=== PATIENT | female | born 1970 | race American Indian/Alaskan Native ===

== ENCOUNTER 2020-01-27 11:13 | Emergency (ER) | payer MEDICAID ==
--- NOTE | 2020-01-27 12:04 | XRay Report ---
CHEST 2 VIEWS INDICATION / CLINICAL INFORMATION: Chest Pain. COMPARISON: None available. FINDINGS: SUPPORT DEVICES: None. HEART / MEDIASTINUM: No significant abnormality. LUNGS / PLEURA: There is a focal region of airspace opacification within the right lower lung. No pne umothorax. ADDITIONAL FINDINGS: No significant additional findings. IMPRESSION: Airspace opacification within the right lower lung could reflect atelectasis or pneumonia. Clinical c orrelation is recommended. Signer Name: Amish Bose MD Signed: 01/27/2020 11:59 AM Workstation Name: [id number]
[2020-01-27 12:19] LABS: Basophils # (Auto) 0.1 K/mm3 (0.0-0.1); Basophils % (Auto) 0.8 % (0.0-1.8); Eosinophils # (Auto) 0.1 K/mm3 (0.0-0.4); Eosinophils % (Auto) 0.6 % (0.0-4.3); Hematocrit 40.1 % (30.3-42.9); Hemoglobin 13.7 gm/dl (10.1-14.3); Mean Corpuscular HGB Conc 34 % (30-34); Mean Corpuscular Volume 88 fl (79-97); Monocytes # (Auto) 0.7 K/mm3 (0.0-0.8); Monocytes % (Auto) 5.9 % (0.0-7.3); Platelet Count 264 K/mm3 (140-440); Red Blood Count 4.54 M/mm3 (3.65-5.03); Red Cell Distribution Width 15.7 % (13.2-15.2)
[2020-01-27 12:41] LABS: Alanine Aminotransferase 7 units/L (7-56); Albumin 4.2 g/dL (3.9-5); BUN/Creatinine Ratio 13; Blood Urea Nitrogen 13 mg/dL (7-17); Calcium 9.3 mg/dL (8.4-10.2); Hemolysis Index 8
[2020-01-27] MEDS ORDERED: cefTRIAXone/NS 1 GM/50 ML 1 GM/50 ML BAG IV ONE (12:55)
--- NOTE | 2020-01-27 12:57 | Emergency Department Report ---
ED Chest Pain HPI - General Chief Complaint: Chest Pain Stated Complaint: CHEST PAIN Time Seen by Provider: 01/27/20 12:29 Source: patient, EMS Mode of arrival: Stretcher Limitations: No Limitations - History of Present Illness Initial Comments: 49-year-old -[place] female patient with history of schizophrenia presents with complaints of right-sided chest pain x today. She denies any personal or family history of heart disease. She describes her pain as sharp and rates her current pain as 8/10 in severity and states it worsens with deep inhalation. She admits to a cough and mild shortness of breath. Patient is currently a smoker and states history of asthma. She denies any hemoptysis, leg pain/swelling, recent long travel/surgeries, history of cancer, history of DVT/PE, or hormone use. She also denies any known recent sick contacts. Pain Location: right chest Pain Radiation: other (Right back) - Related Data Previous Rx's Medication Instructions Recorded Last Taken Type Amoxicillin/Potassium Clav 1 each PO BID 10 Days #20 tablet 01/27/20 Unknown Rx [Augmentin 875-125 Tablet] Azithromycin [Zithromax Z-CHLOE] 0 mg PO DAILY 5 Days #6 tab 01/27/20 Unknown Rx Allergies Allergy/AdvReac Type Severity Reaction Status Date / Time No Known Allergies Allergy Unverified 01/27/20 11:19 Heart Score - HEART Score History: Slightly suspicious EKG: Normal Age: < 45 Risk factors: 1-2 risk factors Troponin: < normal limit HEART Score: 1 - Critical Actions Critical Actions: 0-3 pts:0.9-1.7%risk of adverse cardiac event.Candidate for discharge ED Review of Systems ROS: Stated complaint: CHEST PAIN Other details as noted in HPI Constitutional: denies: chills, diaphoresis, fever, malaise, weakness ENT: denies: throat pain Respiratory: cough, shortness of breath Cardiovascular: chest pain. denies: edema, syncope Gastrointestinal: denies: abdominal pain, nausea, vomiting, diarrhea Musculoskeletal: denies: back pain Skin: denies: rash, lesions Neurological: denies: headache Hematological/Lymphatic: denies: swollen glands ED Past Medical Hx - Past Medical History Previous Medical History?: No - Surgical History Past Surgical History?: No - Social History Smoking Status: Current Every Day Smoker - Medications Home Medications: Home Medications Medication Instructions Recorded Confirmed Last Taken Type Amoxicillin/Potassium Clav 1 each PO BID 10 Days #20 tablet 01/27/20 Unknown Rx [Augmentin 875-125 Tablet] Azithromycin [Zithromax Z-CHLOE] 0 mg PO DAILY 5 Days #6 tab 01/27/20 Unknown Rx ED Physical Exam - General Limitations: No Limitations General appearance: alert, in no apparent distress - Head Head exam: Present: atraumatic, normocephalic - Eye Eye exam: Present: normal appearance. Absent: scleral icterus - Neck Neck exam: Present: normal inspection - Respiratory Respiratory exam: Present: decreased breath sounds (Right mid/lower lung). Absent: respiratory distress, wheezes, rales - Cardiovascular Cardiovascular Exam: Present: regular rate, normal rhythm. Absent: systolic mur mur, diastolic murmur, rubs, gallop - GI/Abdominal GI/Abdominal exam: Present: soft. Absent: distended, tenderness, guarding, rebound, rigid - Extremities Exam Extremities exam: Present: normal inspection. Absent: calf tenderness (No swelling or tenderness noted bilaterally to legs) - Back Exam Back exam: Present: normal inspection. Absent: CVA tenderness (R), CVA tenderness (L) - Neurological Exam Neurological exam: Present: alert, oriented X3 - Psychiatric Psychiatric exam: Present: normal affect, normal mood - Skin Skin exam: Present: warm, dry, intact, normal color. Absent: rash ED Course Vital Signs 01/27/20 01/27/20 11:19 12:59 Temperature 98.1 F 98.9 F Pulse Rate 89 78 Respiratory 16 16 Rate Blood Pressure 125/80 Blood Pressure 122/83 [Left] O2 Sat by Pulse 96 99 Oximetry ED Medical Decision Making - Lab Data Result diagrams: 01/27/20 11:55 01/27/20 11:55 Lab Results 01/27/20 01/27/20 Range/Units 11:55 11:55 WBC 11.5 H (4.5-11.0) K/mm3 RBC 4.54 (3.65-5.03) M/mm3 Hgb 13.7 (10.1-14.3) gm/dl Hct 40.1 (30.3-42.9) % MCV 88 (79-97) fl MCH 30 (28-32) pg MCHC 34 (30-34) % RDW 15.7 H (13.2-15.2) % Plt Count 264 (140-440) K/mm3 Lymph % (Auto) 17.0 (13.4-35.0) % [place] % (Auto) 5.9 (0.0-7.3) % Eos % (Auto) 0.6 (0.0-4.3) % Baso % (Auto) 0.8 (0.0-1.8) % Lymph # 2.0 (1.2-5.4) K/mm3 [place] # 0.7 (0.0-0.8) K/mm3 Eos # 0.1 (0.0-0.4) K/mm3 Baso # 0.1 (0.0-0.1) K/mm3 Seg Neutrophils % 75.7 H (40.0-70.0) % Seg Neutrophils # 8.7 H (1.8-7.7) K/mm3 Sodium 140 (137-145) mmol/L Potassium 3.5 L (3.6-5.0) mmol/L Chloride 102.2 (98-107) mmol/L Carbon Dioxide 23 (22-30) mmol/L Anion Gap 18 mmol/L BUN 13 (7-17) mg/dL Creatinine 1.0 (0.6-1.2) mg/dL Estimated GFR > 60 ml/min BUN/Creatinine Ratio 13 % Glucose 127 H (65-100) mg/dL Calcium 9.3 (8.4-10.2) mg/dL Total Bilirubin 0.40 (0.1-1.2) mg/dL AST 9 (5-40) units/L ALT 7 (7-56) units/L Alkaline Phosphatase 81 (35-129) units/L Troponin T < 0.010 (0.00-0.029) ng/mL Total Protein 7.3 (6.3-8.2) g/dL Albumin 4.2 (3.9-5) g/dL Albumin/Globulin Ratio 1.4 % - Radiology Data Radiology results: report reviewed CHEST 2 VIEWS INDICATION / CLINICAL INFORMATION: Chest Pain. COMPARISON: None available. FINDINGS: SUPPORT DEVICES: None. HEART / MEDIASTINUM: No significant abnormality. LUNGS / PLEURA: There is a focal region of airspace opacification within the right lower lung. No pneumothorax. ADDITIONAL FINDINGS: No significant additional findings. IMPRESSION: Airspace opacification within the right lower lung could reflect atelectasis or pneumonia. Clinical correlation is recommended. - Medical Decision Making Patient here with right-sided chest pain and cough. She states she had a negative COVID test 2 days ago. White count 11.5 on CBC. CMP and troponin are without acute abnormalities. No acute abnormalities noted on EKG. Chest x-ray shows right sided pneumonia. Patient given IV Rocephin and Toradol for the pain. She is afebrile, non-tachycardic, and her pulse ox is 99% on room air. She denies any antibiotic use in the last 90 days. She is stable for discharge home and outpatient treatment of pneumonia. Prescription for Augmentin and azithromycin given. Patient informed to follow-up with her primary care provider within 3 days. Also recommend avoidance of smoking. Strict return precautions were discussed in detail with patient who verbalized understanding. Critical care attestation.: If time is entered above; I have spent that time in minutes in the direct care of this critically ill patient, excluding procedure time. ED Disposition Clinical Impression: Community acquired bacterial pneumonia Disposition: DC-01 TO HOME OR SELFCARE Is pt being admited?: No Condition: Stable Instructions: Bacterial Pneumonia (ED) Prescriptions: Amoxicillin/Potassium Clav [Augmentin 875-125 Tablet] 1 each PO BID 10 Days #20 tablet Azithromycin [Zithromax Z-CHLOE] 0 mg PO DAILY 5 Days #6 tab Referrals: PRIMARY CARE, [Primary Care Provider] - 3-5 Days
[2020-01-27 13:00] VITALS: BP 122/83
[2020-01-27] MEDS ORDERED: KETOROLAC 30 MG/1 ML INJ IV ONE (13:27)
== END 2020-01-27 14:05 | disposition home or self-care (01) ==
LOC: ED 11:13
DX: J15.9 Unspecified bacterial pneumonia (principal); F17.200 Nicotine dependence, unspecified, uncomplicated; Z79.2 Long term (current) use of antibiotics
CPT/HCPCS: 36415; 71046; 80053; 84484; 85025; 93005; 96365; 96375; 99284; J0696; J1885